=== PATIENT | male | born 1980 | race Caucasian/White ===

== ENCOUNTER 2022-09-22 13:05 | Inpatient (IN) | payer OTHER ==
[2022-09-22 13:31] VITALS: BMI 26.6
[2022-09-22] MEDS ORDERED: cloNIDine HCL 0.1 MG TABLET PO ONE (14:02)
[2022-09-22] MEDS ORDERED: ONDANSETRON *ODT* 4 MG TABLET SL PRN (14:02)
[2022-09-22] MEDS ORDERED: DICYCLOMINE HCL 10 MG CAPSULE PO PRN (14:02)
[2022-09-22] MEDS ORDERED: IBUPROFEN 400 MG TABLET (FP) PO PRN (14:02)
[2022-09-22] MEDS ORDERED: ACETAMINOPHEN 325 MG TABLET (FP) PO PRN ×2 (14:02)
[2022-09-22] MEDS ORDERED: BISMUTH SUBSALICYLATE 524 MG/30 ML PO PRN (14:02)
[2022-09-22] MEDS ORDERED: BENZOCAINE/MENTHOL (CHLORASEPTIC ) LOZENGE MM PRN (14:02)
[2022-09-22] MEDS ORDERED: POLYETHYLENE GLYCOL (HEALTHYLAX) 3350 17 GM PACKET PO PRN (14:02)
[2022-09-22] MEDS ORDERED: MAGNESIUM HYDROX 2400MG/30ML ORAL SUSPENSION 30 ML CUP PO PRN (14:02)
[2022-09-22] MEDS ORDERED: NALOXONE HCL (KLOXXADO) 8 MG SPRAY NS PRN (14:02)
[2022-09-22] MEDS ORDERED: chlordiazePOXIDE HCL 25 MG CAPSULE PO PRN (14:02)
[2022-09-22] MEDS ORDERED: cloNIDine HCL 0.1 MG TABLET ONE (14:22)
[2022-09-22] MEDS ORDERED: chlordiazePOXIDE HCL 25 MG CAPSULE ONE (14:25)
[2022-09-22] MEDS: chlordiazePOXIDE HCL 25 MG CAPSULE PO SCH ×2 (17:33→22:14)
[2022-09-22] MEDS: IBUPROFEN 600 MG TABLET (FP) PO PRN (17:33)
[2022-09-22] MEDS: LOPERAMIDE HCL 2 MG CAPSULE PO PRN (18:44)
[2022-09-22] MEDS: THIAMINE HCL 100 MG TABLET (FP) PO SCH (22:14)
[2022-09-22] MEDS: MELATONIN 5 MG TABLETS PO SCH (22:14)
[2022-09-23] MEDS: chlordiazePOXIDE HCL 25 MG CAPSULE PO SCH ×4 (05:16→22:57)
[2022-09-23] MEDS: PRENATAL VITAMINS W/ FOLIC ACID TABLET (FP) PO SCH (10:15)
[2022-09-23] MEDS: NICOTINE 7 MG/24 HOURS TOPICAL PATCH TD SCH (10:17)
[2022-09-23 10:38] LABS: HEMATOCRIT 42.2 % (35.4-49); HEMOGLOBIN 14.1 GM/dL (11.7-16.9); MCH 34.5 pg (25.7-33.7); MCHC 33.5 g/dl (32.0-35.9); MEAN PLT VOLUME 6.4 fl (7.5-11.1); PLATELET COUNT 148 10^3/uL (134-434); RDW 13.5 % (11.9-15.9); WHITE BLOOD COUNT 3.3 K/mm3 (4.0-10.0)
[2022-09-23 10:43] LABS: ALBUMIN 3.3 g/dl (3.4-5.0); CALCIUM 9.4 mg/dL (8.5-10.1)
[2022-09-23 10:44] LABS: BLOOD UREA NITROGEN 5.2 mg/dL (7-18)
[2022-09-23 10:46] LABS: CREATININE 0.8 mg/dL (0.55-1.3)
[2022-09-23 10:48] LABS: BILIRUBIN,TOTAL 1.3 mg/dL (0.2-1); TOT PROT 7.1 g/dl (6.4-8.2)
[2022-09-23] MEDS ORDERED: POTASSIUM CHLORIDE TABS 20 MEQ TABLET.ER (FP) PO ONE ×2 (12:49→20:00)
[2022-09-23] MEDS: IBUPROFEN 600 MG TABLET (FP) PO PRN (20:18)
[2022-09-23] MEDS: THIAMINE HCL 100 MG TABLET (FP) PO SCH (22:57)
[2022-09-23] MEDS: MELATONIN 5 MG TABLETS PO SCH (22:58)
[2022-09-24] MEDS ORDERED: chlordiazePOXIDE HCL 25 MG CAPSULE PO SCH (05:00)
[2022-09-24] MEDS ORDERED: LORazepam 1 MG TABLET PO PRN (10:03)
[2022-09-24] MEDS: NICOTINE 7 MG/24 HOURS TOPICAL PATCH TD SCH (10:42)
[2022-09-24] MEDS: NICOTINE 10 MG CARTRIDGE (INHALER) IH PRN (10:42)
[2022-09-24] MEDS: PRENATAL VITAMINS W/ FOLIC ACID TABLET (FP) PO SCH (10:42)
[2022-09-24] MEDS: LORazepam 2 MG TABLET PO SCH ×3 (10:43→22:08)
[2022-09-24] MEDS: MELATONIN 5 MG TABLETS PO SCH (22:07)
[2022-09-24] MEDS: THIAMINE HCL 100 MG TABLET (FP) PO SCH (22:08)
[2022-09-25] MEDS ORDERED: chlordiazePOXIDE HCL 10 MG CAPSULE PO PRN
[2022-09-25] MEDS ORDERED: chlordiazePOXIDE HCL 10 MG CAPSULE PO SCH (05:00)
[2022-09-25] MEDS: LORazepam 2 MG TABLET PO SCH ×4 (05:42→22:35)
[2022-09-25] MEDS: PRENATAL VITAMINS W/ FOLIC ACID TABLET (FP) PO SCH (10:18)
[2022-09-25] MEDS: METHOCARBAMOL 500 MG TABLET PO PRN (10:18)
[2022-09-25] MEDS: NICOTINE 7 MG/24 HOURS TOPICAL PATCH TD SCH (10:19)
[2022-09-25] MEDS: NICOTINE 21 MG/24 HOURS TOPICAL PATCH TD SCH (10:41)
[2022-09-25 14:49] LABS: ALBUMIN 3.2 g/dl (3.4-5.0)
[2022-09-25 14:51] LABS: CREATININE 0.8 mg/dL (0.55-1.3)
[2022-09-25 14:53] LABS: BILIRUBIN,TOTAL 0.9 mg/dL (0.2-1); TOT PROT 6.9 g/dl (6.4-8.2)
[2022-09-25] MEDS: THIAMINE HCL 100 MG TABLET (FP) PO SCH (22:34)
[2022-09-25] MEDS: MELATONIN 5 MG TABLETS PO SCH (22:36)
[2022-09-26] MEDS ORDERED: chlordiazePOXIDE HCL 10 MG CAPSULE PO SCH (05:00)
[2022-09-26] MEDS: LORazepam 1 MG TABLET PO SCH ×4 (05:20→22:21)
[2022-09-26] MEDS: NICOTINE 21 MG/24 HOURS TOPICAL PATCH TD SCH (10:47)
[2022-09-26] MEDS: LACTULOSE 20 GM/30 ML UDC (FOR ORAL USE ONLY) PO SCH ×4 (10:47→22:22)
[2022-09-26] MEDS: PRENATAL VITAMINS W/ FOLIC ACID TABLET (FP) PO SCH (10:48)
[2022-09-26] MEDS: METHOCARBAMOL 500 MG TABLET PO PRN (10:48)
[2022-09-26] MEDS: NICOTINE 10 MG CARTRIDGE (INHALER) IH PRN (10:49)
[2022-09-26] MEDS: MELATONIN 5 MG TABLETS PO SCH (22:21)
[2022-09-26] MEDS: THIAMINE HCL 100 MG TABLET (FP) PO SCH (22:21)
[2022-09-27] MEDS ORDERED: LORazepam 0.5 MG TABLET PO PRN
[2022-09-27] MEDS: MAG HYDROX/AL HYDROX/SIMETH 30 ML UNIT-DOSE CUP PO PRN ×2 (04:58→16:03)
[2022-09-27] MEDS ORDERED: chlordiazePOXIDE HCL 10 MG CAPSULE PO ONE (05:00)
[2022-09-27] MEDS: LORazepam 0.5 MG TABLET PO SCH ×4 (06:30→22:27)
[2022-09-27] MEDS: METHOCARBAMOL 500 MG TABLET PO PRN (10:16)
[2022-09-27] MEDS: PRENATAL VITAMINS W/ FOLIC ACID TABLET (FP) PO SCH (10:16)
[2022-09-27] MEDS: NICOTINE 21 MG/24 HOURS TOPICAL PATCH TD SCH (10:19)
[2022-09-27] MEDS: LACTULOSE 20 GM/30 ML UDC (FOR ORAL USE ONLY) PO SCH ×4 (10:20→22:27)
[2022-09-27 12:57] VITALS: RESP 18
[2022-09-27] MEDS: NICOTINE 10 MG CARTRIDGE (INHALER) IH PRN (15:17)
[2022-09-27] MEDS: MELATONIN 5 MG TABLETS PO SCH (22:26)
[2022-09-27] MEDS: THIAMINE HCL 100 MG TABLET (FP) PO SCH (22:26)
[2022-09-28] MEDS: METHOCARBAMOL 500 MG TABLET PO PRN (02:54)
[2022-09-28] MEDS: MAG HYDROX/AL HYDROX/SIMETH 30 ML UNIT-DOSE CUP PO PRN (02:55)
[2022-09-28] MEDS ORDERED: LORazepam 0.5 MG TABLET PO ONE (05:00)
[2022-09-28] MEDS: NICOTINE 10 MG CARTRIDGE (INHALER) IH PRN (07:23)
[2022-09-28] MEDS: LOPERAMIDE HCL 2 MG CAPSULE PO PRN (09:03)
[2022-09-28 09:08] VITALS: BP 132/88; PULSE 95; TEMP 97.2
[2022-09-28] MEDS: LACTULOSE 20 GM/30 ML UDC (FOR ORAL USE ONLY) PO SCH (10:48)
[2022-09-28] MEDS: NICOTINE 21 MG/24 HOURS TOPICAL PATCH TD SCH (10:48)
[2022-09-28] MEDS: PRENATAL VITAMINS W/ FOLIC ACID TABLET (FP) PO SCH (10:49)
== END 2022-09-28 10:50 | disposition home or self-care (01) | DRG 775 ==
LOC: YASAS 13:05 → Y6N 14:27
PROVIDERS: ADMIT Allergy & Immunology; ATTEND Surgery
PROC: HZ2ZZZZ Detoxification Services for Substance Abuse Treatment (ICD-10-PCS; principal; 2022-09-22)
DX: F10.230 Alcohol dependence with withdrawal, uncomplicated (principal); F17.210 Nicotine dependence, cigarettes, uncomplicated; E87.6 Hypokalemia; B18.2 Chronic viral hepatitis C; M54.50 Low back pain, unspecified; G89.29 Other chronic pain; R74.8 Abnormal levels of other serum enzymes; R79.89 Other specified abnormal findings of blood chemistry; Z28.310 Unvaccinated for COVID-19; Z28.9 Immunization not carried out for unspecified reason
CPT/HCPCS: 36415; 71046-TC-FY; 80053; 82140; 84132; 85027; 86780; 93005; 93010; C9803-CS; U0003; U0005